=== PATIENT | male | born 1965 | race Caucasian/White ===

== ENCOUNTER 2019-10-23 13:36 | Observation (INO) ==
--- NOTE | 2019-10-23 14:57 | Emergency Department Note ---
Impression & Plan Chest pain, Fluttering sensation of heart ED Provider Note CHIEF COMPLAINT: Chest pain, palpitations HISTORY OF PRESENTING ILLNESS: This is a 54-year-old male who presents to the emergency department by private vehicle with complaint of chest pain and heart palpitations. Patient states that he woke up around 3 AM with midsternal chest pain that radiated into his right arm, he noticed some tingling in his fingers and felt short of breath and nauseated. He also felt that he was having some fluttering in his chest that he describes as "feeling like my heart is going to stop." He notes that the chest pain felt like a pressure on his chest and lasted about 30 minutes and seem to resolve on its own. He did not take anything for the pain. He denies any chest pain now and rates his pain a 0/10. He states he still is feeling some fluttering off and on, but denies any other symptoms. He states "something just feels wrong." He has not had any lightheadedness, syncope, or sweats. He has not had any vomiting. He denies abdominal pain or back pain. He is a smoker and notes a family history of a grandmother who had a pacemaker. He notes that he has been having feelings of heart fluttering and chest pains off and on for the past 1.5 months, but it has been getting progressively worse over the past week. He notes that he waited to get evaluated because he was concerned about coronavirus. REVIEW OF SYSTEMS: A complete 10 point review of systems was reviewed with the patient with pertinent positives and negatives as per history of present illness. All else were negative. PAST MEDICAL HISTORY: Insomnia SOCIAL HISTORY: Lives at home, he is a current everyday smoker ALLERGIES: No known allergies PHYSICAL EXAM: CONSTITUTIONAL: Pleasant and cooperative. Nontoxic-appearing and in no acute distress. Well appearing and well nourished. HEENT: Normocephalic, atraumatic. Pharynx normal. NECK: Supple, full active range of motion without discomfort. RESPIRATORY: Clear to auscultation bilaterally with no wheezing, crackles, rhonchi or stridor. Equal expansion bilaterally. CARDIOVASCULAR: Regular rate and rhythm with no murmurs, rubs or gallops. Normal peripheral perfusion, 2+ distal pulses in all 4 extremities. No pitting edema. GASTROINTESTINAL: Soft, nontender, nondistended. No palpable masses or HSM. Bowel sounds present in all quadrants. No CVA tenderness bilaterally. MUSCULOSKELETAL: Full range of motion of all joints without discomfort. INTEGUMENTARY: No rash or other significant dermatologic conditions noted. NEUROLOGIC: Alert and oriented X 4 with normal affect. Normal strength and sensation in all 4 extremities. Normal speech. Normal gait observed. ED COURSE AND MEDICAL DECISION MAKING: CC: Patient presenting with complaint of chest pain, palpitations DIFFERENTIAL DIAGNOSIS: Includes, but not limited to acute coronary syndrome, cardiac dysrhythmia, pericarditis, myocarditis, anxiety, GERD, gastritis, pulmonary embolism, among others. INTERPRETATION OF LABS: Mild leukocytosis, no anemia, normal platelets, no significant electrolyte abnormalities, normal renal function, normal liver enzymes and lipase. Coagulation factors within normal limits. Troponin undetectable. IMAGING: SINGLE VIEW CHEST CLINICAL HISTORY: Atypical chest pain. FINDINGS: 2 AP, portable, upright chest radiographs are compared to study dated 05/19/2014. The cardiomediastinal silhouette is unremarkable. There is mild bibasilar atelectasis. The lungs and pleural spaces are otherwise clear. No pneumothorax is seen. The bony thorax is grossly intact. IMPRESSION: No active disease in the chest. EKG: Shows normal sinus rhythm with a rate of 69 bpm, normal intervals, no ST or T wave abnormalities, no ectopy, no significant change when compared to previous EKG from 10/01/2018 by my interpretation. MEDICATION RECONCILIATION: I attest that I have personally reviewed the patient's current medication list. INITIAL VITAL SIGNS REVIEW: I reviewed the patient's initial vital signs and interpret them as follows: T: Afebrile; BP: Mildly hypertensive; HR: Within normal limits; RR: Within normal limits; Pulse Ox: Within normal limits on room air. Blood pressure screening: The patient was found to have an elevated blood pressure and was referred to the inpatient team for further evaluation and management. MDM SUMMARY: Patient was evaluated at bedside, history and physical exam performed. Patient is alert and oriented, in no acute distress, resting calmly in the stretcher. He currently denies any chest pain and rates his pain level a 0/10. Cardiac monitoring: An order was placed for continuous cardiac monitoring. The monitor shows a rate of 62 bpm with normal sinus rhythm. No ectopy noted on initial assessment. EKG was reviewed at bedside, noting normal sinus rhythm with no acute ischemic changes. Orders were placed at bedside for labs, EKG and chest x-ray to evaluate for cardiopulmonary disease. Patient discussed with Dr. Caldwell, who agrees with my assessment, plan, and disposition. Labs and imaging reviewed as above, labs are notable for mild leukocytosis, electrolytes, renal function and liver function are all normal. Troponin is undetectable. Heart score is 3, however patient's story is concerning and I feel he would benefit from admission for chest pain work-up and stress test. Patient reassessed multiple times throughout ED stay, he has remained hemodynamically stable and chest pain-free. He was agreeable to stay in the hospital for chest pain observation. I spoke on the phone with Nelly Romero PA-C with the [facility] team, she agreed to evaluate the patient for the admission. The patient was updated on all results and plan for this admission, he verbalized understanding and was agreeable with this plan. The patient was stable at time of admission. The chart was completed utilizing [employer] Speech voice recognition software. Grammatical errors, random word insertions, pronoun errors, and incomplete sentences are an occasional consequence of this system due to software limita tions, ambient noise, and hardware issues. Any formal questions or concerns about the content, text, or information contained within the body of this dictation should be directly addressed to the nurse practitioner for clarification. 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 Beliefs That Will Affect Care: None marital status: Current Living Situation: Spouse Other Information That Helps Us Care for You: No Feels Safe at Home: Yes Safety Concerns: Feels Safe At This Time Smoking Status: Current some day smoker Years Smoked: 30 ; Cigarettes Per Day: 1-2 ; Hx Alcohol Use: Yes Alcohol type: beer Alcohol Intake Frequency Comment: former hx of alcohol use Hx Substance Use: No Allergies Allergies Allergy/AdvReac Type Severity Reaction Status Date / Time No Known Allergies Allergy Unverified 10/23/19 15:59 Home Meds Home Medications Medication Instructions Recorded Confirmed sertraline 25 mg PO DAILY 10/23/19 10/23/19 Results & Data (ED) Vital Signs Vital Signs - 24 hr 10/23/19 13:58 10/23/19 15:08 10/23/19 15:09 Temperature 37.0 C Temperature Source Oral Pulse Rate 69 61 Pulse Rate [Apical] 58 L Pulse Rhythm Regular Pulse Strength Normal Respiratory Rate 16 16 18 Respiratory Effort / Characteristics Non-Labored Spontaneous Non-Labored Respiratory Depth Normal Normal Respiratory Pattern Regular Blood Pressure 135/80 115/70 Blood Pressure [Right Arm] 115/70 Blood Pressure Mean 98 74 Blood Pressure Mean [Right Arm] 85 Blood Pressure Position Lying Pulse Oximetry 99 97 99 Oxygen Delivery Method Room Air Room Air Sepsis Recent Fever Within 48 Hours No Sepsis Action Taken by Nursing No Action Required 10/23/19 15:30 10/23/19 16:00 Temperature Temperature Source Pulse Rate 66 63 Pulse Rate [Apical] Pulse Rhythm Pulse Strength Respiratory Rate 16 17 Respiratory Effort / Characteristics Respiratory Depth Respiratory Pattern Blood Pressure 115/76 142/76 H Blood Pressure [Right Arm] Blood Pressure Mean 91 105 Blood Pressure Mean [Right Arm] Blood Pressure Position Pulse Oximetry 98 98 Oxygen Delivery Method Sepsis Recent Fever Within 48 Hours Sepsis Action Taken by Nursing Laboratory Data Result diagrams: 10/23/19 15:05 10/23/19 15:05 Lab Results 10/23/19 10/23/19 10/23/19 Range/Units 15:05 15:05 15:05 WBC 11.26 H (4.8-10.8) K/uL RBC 4.75 (4.7-6.1) M/uL Hgb 14.9 (14.0-18.0) g/dL Hct 44.1 (42-52) % MCV 92.8 (80-100) fL MCH 31.4 (25-34) pg MCHC 33.8 (32-36) g/dL RDW Std Deviation 45.4 (36.4-46.3) fL RDW Coeff of Venu 13.3 (11.5-14.5) % Plt Count 274 (130-400) K/uL MPV 8.6 (7.4-10.4) fL Immature Gran % (Auto) 0.4 % Neut % (Auto) 55.1 % Lymph % (Auto) 31.3 % [place] % (Auto) 10.7 % Eos % (Auto) 2.1 % Baso % (Auto) 0.4 % Immature Gran # (Auto) 0.04 H (0.00-0.02) K/uL Neut # (Auto) 6.22 (1.4-6.5) K/uL Lymph # (Auto) 3.52 H (1.2-3.4) K/uL [place] # (Auto) 1.20 H (0.11-0.59) K/uL Eos # (Auto) 0.24 (0-0.5) K/uL Baso # (Auto) 0.04 (0-0.2) K/uL PT 10.9 (9.0-12.0) Seconds INR 1.0 (0.9-1.1) APTT 28.9 (21.0-31.0) Seconds PTT Ratio 1.0 Sodium 140 (136-145) mmol/L Potassium 4.1 (3.5-5.1) mmol/L Chloride 107 (98-107) mmol/L Carbon Dioxide 29 (21-32) mmol/L Anion Gap 4.0 (3-11) BUN 8 (7-18) mg/dl Creatinine 0.90 (0.6-1.4) mg/dl Est Cr Clr Drug Dosing 92.9 ml/min Est GFR ( Amer) 111.0 Est GFR (Non-Af Amer) 95.8 BUN/Creatinine Ratio 9.0 L (10-20) Glucose 83 (70-99) mg/dl Calcium 8.5 (8.5-10.1) mg/dl Total Bilirubin 0.3 (0.2-1) mg/dl AST 10 L (15-37) U/L ALT 17 (12-78) U/L Alkaline Phosphatase 85 (45-117) U/L Troponin I < 0.015 (0-0.045) ng/ml Total Protein 7.7 (6.4-8.2) gm/dl Albumin 3.8 (3.4-5.0) gm/dl Globulin 3.9 (2.5-4.0) gm/dl Albumin/Globulin Ratio 1.0 (0.9-2) Lipase 112 (73-393) U/L TSH (0.300-4.500) uIu/ml 10/23/19 Range/Units 15:05 WBC (4.8-10.8) K/uL RBC (4.7-6.1) M/uL Hgb (14.0-18.0) g/dL Hct (42-52) % MCV (80-100) fL MCH (25-34) pg MCHC (32-36) g/dL RDW Std Deviation (36.4-46.3) fL RDW Coeff of Venu (11.5-14.5) % Plt Count (130-400) K/uL MPV (7.4-10.4) fL Immature Gran % (Auto) % Neut % (Auto) % Lymph % (Auto) % [place] % (Auto) % Eos % (Auto) % Baso % (Auto) % Immature Gran # (Auto) (0.00-0.02) K/uL Neut # (Auto) (1.4-6.5) K/uL Lymph # (Auto) (1.2-3.4) K/uL [place] # (Auto) (0.11-0.59) K/uL Eos # (Auto) (0-0.5) K/uL Baso # (Auto) (0-0.2) K/uL PT (9.0-12.0) Seconds INR (0.9-1.1) APTT (21.0-31.0) Seconds PTT Ratio Sodium (136-145) mmol/L Potassium (3.5-5.1) mmol/L Chloride (98-107) mmol/L Carbon Dioxide (21-32) mmol/L Anion Gap (3-11) BUN (7-18) mg/dl Creatinine (0.6-1.4) mg/dl Est Cr Clr Drug Dosing ml/min Est GFR ( Amer) Est GFR (Non-Af Amer) BUN/Creatinine Ratio (10-20) Glucose (70-99) mg/dl Calcium (8.5-10.1) mg/dl Total Bilirubin (0.2-1) mg/dl AST (15-37) U/L ALT (12-78) U/L Alkaline Phosphatase (45-117) U/L Troponin I (0-0.045) ng/ml Total Protein (6.4-8.2) gm/dl Albumin (3.4-5.0) gm/dl Globulin (2.5-4.0) gm/dl Albumin/Globulin Ratio (0.9-2) Lipase (73-393) U/L TSH 2.890 (0.300-4.500) uIu/ml Discharge Plan Visit Data *Final* Discharge Date/Time: 10/23/19 17:05 Chief Complaint: Cardiac Assessment Stated Complaint: CHEST PAINS,NUMBNESS,HEADACHE,NAUSEA ED Provider: Rigo Caldwell ED Midlevel Provider: Trena Simon Discharge Problem: Chest pain, Fluttering sensation of heart Patient Disposition: Admitted As Inpatient Discharge Instructions Interventions: ED Discharge Assessment Last Done: 10/23/19 17:05 Discharge Problem: Chest pain Qualifiers: Chest pain type: unspecified Qualified Code(s): R07.9 - Chest pain, unspecified
[2019-10-23 15:14] LABS: Basophils # (auto) 0.04 K/uL (0-0.2); Basophils % (auto) 0.4 %; Eosinophils # (auto) 0.24 K/uL (0-0.5); Eosinophils % (auto) 2.1 %; Hematocrit (blood only) 44.1 % (42-52); Hemoglobin 14.9 g/dL (14.0-18.0); Immature Granulocytes # (auto) 0.04 K/uL (0.00-0.02); Immature Granulocytes % (auto) 0.4 %; Lymphocytes # (auto) 3.52 K/uL (1.2-3.4); Lymphocytes % (auto) 31.3 %; Mean Corpuscular Hemoglobin 31.4 pg (25-34); Mean Corpuscular Hgb Conc 33.8 g/dL (32-36); Mean Corpuscular Volume 92.8 fL (80-100); Mean Platelet Volume 8.6 fL (7.4-10.4); Monocytes % (auto) 10.7 %; Neutrophils # (auto) 6.22 K/uL (1.4-6.5); Neutrophils % (auto) 55.1 %; Platelet Count 274 K/uL (130-400); RDW Coefficient of Variation 13.3 % (11.5-14.5); RDW Standard Deviation 45.4 fL (36.4-46.3); Red Blood Count 4.75 M/uL (4.7-6.1); White Blood Count 11.26 K/uL (4.8-10.8)
--- NOTE | 2019-10-23 15:22 | XRay Report ---
SINGLE VIEW CHEST CLINICAL HISTORY: Atypical chest pain. FINDINGS: 2 AP, portable, upright chest radiographs are compared to study dated 05/19/2014. The cardio mediastinal silhouette is unremarkable. There is mild bibasilar atelectasis. The lungs and pleural sp aces are otherwise clear. No pneumothorax is seen. The bony thorax is grossly intact. IMPRESSION: No active disease in the chest. ACT 112: Negative or not required by law. Electronically signed by: Rigo Mcdonnell M.D. 10/23/2019 3:20 PM
[2019-10-23 15:25] LABS: Partial Thromboplastin Time 28.9 Seconds (21.0-31.0); Prothrombin Time 10.9 Seconds (9.0-12.0)
[2019-10-23 15:31] LABS: Alanine Aminotransferase 17 U/L (12-78); Albumin Level 3.8 gm/dl (3.4-5.0); Aspartate Aminotransferase 10 U/L (15-37); Blood Urea Nitrogen 8 mg/dl (7-18); Calcium 8.5 mg/dl (8.5-10.1); Carbon Dioxide 29 mmol/L (21-32); Chloride 107 mmol/L (98-107); Creatinine Clr Calc Pharmacy 92.9 ml/min; Est GFR (Non-African American) 95.8; Glucose 83 mg/dl (70-99); Lipase 112 U/L (73-393); Potassium 4.1 mmol/L (3.5-5.1); Sodium 140 mmol/L (136-145)
--- NOTE | 2019-10-23 15:33 | Electrocardiogram Report ---
Test Reason : Blood Pressure : / mmHG Vent. Rate : 069 BPM Atrial Rate : 069 BPM P-R Int : 142 ms QRS Dur : 072 ms QT Int : 366 ms P-R-T Axes : 022 079 060 degrees QTc Int : 392 ms Poor data quality, interpretation may be adversely affected Normal sinus rhythm Normal ECG When compared with ECG of 01-OCT-2018 16:05, No significant change was found Confirmed by Rudy Ferreira ([id number]) on 10/23/2019 3:32:58 PM Referred By: ED Confirmed By:Juan M Ferreira
[2019-10-23 15:36] LABS: Alkaline Phosphatase 85 U/L (45-117); Bilirubin,Total 0.3 mg/dl (0.2-1); Globulin 3.9 gm/dl (2.5-4.0); Total Protein 7.7 gm/dl (6.4-8.2); Troponin I < 0.015 ng/ml (0-0.045)
--- NOTE | 2019-10-23 16:55 | History & Physical Report ---
Date of Service October 23, 2019 Assessment & Plan (1) Chest pain: (2) Fluttering sensation of heart: This is a 54 year old M who has a significant PMH of tobacco use, DONITA who presents to ED 2/2 to chest pain x 1.5 months. In ED patient remained hemodynamically stable. Lab work notable for mild leukocytosis of 11.2 6K with a predominance of lymphocytes and monocytes, CMP relatively unremarkable, troponin WNL, lipase and TSH WNL. Chest x-ray with no acute cardiopulmonary abnormality. EKG with normal sinus rhythm with no ST or T wave changes. He did not receive any treatment in ED secondary to being asymptomatic. Spoke to ED provider regarding above. In ED pt does not exhibit s/sx of ACS. Troponin WNL and EKG w/o ischemic changes. Pt remains asymptomatic in ED. Recommend observation to rule out ACS, monitor on tele for arrhythmia or ectopic beats, other possible etiologies including GERD ,esophageal spasm, DONITA and others. admit to tele cycle troponin q6h x2 repeat ekg fasting lipid panel, a1c in a.m. obtain echocardiogram cardiology consult (3) DONITA (generalized anxiety disorder): continue zoloft (4) DVT prophylaxis: scd/teds disposition: admit to tele Follow up: PCP Dr. Maki upon discharge Pt was seen and examined in collaboration with Dr. Mi, please see addendum History of Present Illness Chief Complaint: Chest pain x 1.5 months Primary Care Provider: Chandana Maki, This is a 54 year old M who has a significant PMH of tobacco use, DONITA who presents to ED 2/2 to chest pain x 1.5 months. Sx started approx a month and a half ago when he noticed fluttering in his chest. Sx would last 30 minutes to 1 hour. Sx would occur with exertion and at rest. He woke up this morning around 3 AM with substernal chest pain, described as a "pressure on chest," resolved within 1 to 2 hours on own. He states over the past 1.5 months he has not sought care due to concerns of the coronavirus. Initially when symptoms began he was described as fluttering and has progressed to fluttering and pressure on chest. Symptoms were not made worse with meals, deep breathing or positional change. Resolved on own. Did not try anything [id number] for his symptoms. Symptoms do not radiate. He has no prior history of GERD so unsure what this feels like. Currently he is asymptomatic. He denies any recent illness, fever, chills, sweats, lightheadedness, dizziness, syncope, cough, hemoptysis, nausea, vomiting, abdominal pain, change in bowel or urinary habits. He denies any prior history of cardiac disease, hypertension, hyperlipidemia or stroke. Positive family history a maternal grandmother of [place] in her 50s. He is a tobacco user and smokes 1 to 2 cigarettes daily and has smoked for at least 30 years of his life. He otherwise has no other medical problems except for anxiety controlled with sertraline. In ED patient remained hemodynamically stable. Lab work notable for mild leukocytosis of 11.2 6K with a predominance of lymphocytes and monocytes, CMP relatively unremarkable, troponin WNL, lipase and TSH WNL. Chest x-ray with no acute cardiopulmonary abnormality. EKG with normal sinus rhythm with no ST or T wave changes. He did not receive any treatment in ED secondary to being asymptomatic. Allergies Allergy/AdvReac Type Severity Reaction Status Date / Time No Known Allergies Allergy Unverified 10/23/19 15:59 Home Medications Home Medications Medication Instructions Recorded Confirmed Type sertraline 25 mg PO DAILY 10/23/19 10/23/19 History Past Med/Surg History Medical History (Updated 10/23/19 @ 18:05 by JUNG Mike) DONITA (generalized anxiety disorder) Surgical History (Updated 10/23/19 @ 16:49 by Nelly Pepe PA-C) Abscess, perirectal requiring 9 surgical procedures History of parotid gland removal Family History Grandmother (Maternal) Myocardial infarction, Onset Age: 52 Pacemaker Social History (Updated 10/23/19 @ 16:51 by Nelly Pepe PA-C) Preferred Language: Kazakh Communication Ability: Effective Director Dance Required: No Beliefs That Will Affect Care: None marital status: Current Living Situation: Spouse Other Information That Helps Us Care for You: No Feels Safe at Home: Yes Safety Concerns: Feels Safe At This Time Smoking Status: Current some day smoker Years Smoked: 30 ; Cigarettes Per Day: 1-2 ; Hx Alcohol Use: Yes Alcohol type: beer Alcohol Intake Frequency Comment: former hx of alcohol use Hx Substance Use: No Review of Systems Review of Systems: All systems reviewed & are unremarkable except as noted in HPI & below Physical Exam Physical Exam: please refer to Dr. Mi for details of physical exam findings. Results & Data Results & Data ([facility]) Vital Signs (Past 12 Hours) Vital Signs Temp Pulse Pulse Resp BP BP Pulse Ox 10/23/19 16:30 66 14 106/77 99 10/23/19 16:00 63 17 142/76 H 98 10/23/19 15:30 66 16 115/76 98 10/23/19 15:09 58 L 18 115/70 99 10/23/19 15:08 61 16 115/70 97 10/23/19 13:58 37.0 C 69 16 135/80 99 Laboratory Results Short CBC 10/23/19 Range/Units 15:05 WBC 11.26 H (4.8-10.8) K/uL Hgb 14.9 (14.0-18.0) g/dL Hct 44.1 (42-52) % Plt Count 274 (130-400) K/uL BMP 10/23/19 15:05 Sodium 140 Potassium 4.1 Chloride 107 Carbon Dioxide 29 BUN 8 Creatinine 0.90 Glucose 83 Calcium 8.5 Cardiac Enzymes 10/23/19 Range/Units 15:05 Troponin I < 0.015 (0-0.045) ng/ml Liver Function 10/23/19 Range/Units 15:05 Total Bilirubin 0.3 (0.2-1) mg/dl AST 10 L (15-37) U/L ALT 17 (12-78) U/L Alkaline Phosphatase 85 (45-117) U/L Albumin 3.8 (3.4-5.0) gm/dl Diagnostic Findings CXR: IMPRESSION: No active disease in the chest. ECG Rate (beats per minute): 69 Rhythm: normal sinus Code Status & VTE Plan Code Status Full Code VTE Prophylaxis Plan VTE Prophylaxis will be ordered: Yes Supervising Physician Co-Signing Physician Notes History and physical exam performed by me. History significant for 54 year old M who has a significant PMH of tobacco use, DONITA who presents to ED for chest pain x 1.5 months, usually exertional but woke patient up this AM, occasionally associated with fluttering sensation. Described as occasionally sharp and occasionally pressure. Detailed history documented above. Physical exam General: Well nourished, well hydrated , average body habitus, no acute distress and not ill appearing Eyes: PERRL, conjunctivae normal, not pale, anicteric sclerae, EOM intact bilaterally ENMT: External ear and nose normal, oropharynx normal Neck: Normal visual inspection, no tracheal deviation, no swelling noted Respiratory: Normal respiratory effort, no respiratory distress, lungs clear to auscultation, no crackles and no wheezes Cardiovascular: Pulse is RRR. 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 May need stress testing inpatient or outpatient Get A1c and lipid panel Provided smoking cessation counselling Other plans as documented in Nelly Pepe's note
[2019-10-23] MEDS ORDERED: ACETAMINOPHEN 325 MG TAB PO PRN (17:23)
[2019-10-23] MEDS ORDERED: NITROGLYCERIN SL 0.4 MG/TAB TAB SL PRN (17:23)
[2019-10-23] MEDS ORDERED: ONDANSETRON INJ 2 MG/ML 2 ML VIAL IV PRN (17:23)
[2019-10-23] MEDS ORDERED: ALUMINUM/MAGNESIUM SUSP 30 ML UDC PO PRN (17:23)
[2019-10-24 01:44] LABS: Hematocrit (blood only) 42.9 % (42-52); Hemoglobin 14.4 g/dL (14.0-18.0); Mean Corpuscular Hgb Conc 33.6 g/dL (32-36); Mean Corpuscular Volume 92.5 fL (80-100); Mean Platelet Volume 8.6 fL (7.4-10.4); Platelet Count 262 K/uL (130-400); RDW Coefficient of Variation 13.2 % (11.5-14.5); RDW Standard Deviation 44.4 fL (36.4-46.3); Red Blood Count 4.64 M/uL (4.7-6.1); White Blood Count 12.76 K/uL (4.8-10.8)
[2019-10-24 02:49] LABS: BUN Creatinine Ratio 12.2 (10-20); Calcium 8.3 mg/dl (8.5-10.1); Creatinine Clr Calc Pharmacy 98.3 ml/min; Est GFR (African American) 113.7; Est GFR (Non-African American) 98.1; Potassium 3.9 mmol/L (3.5-5.1)
[2019-10-24 06:28] LABS: Estimated Average Glucose 120 mg/dl; Hemoglobin A1C 5.8 % (4.5-5.6)
[2019-10-24] MEDS ORDERED: SERTRALINE HCL 50 MG TABLET PO SCH (09:00)
[2019-10-24] MEDS ORDERED: ASPIRIN 81 MG CHEW PO SCH (09:00)
--- NOTE | 2019-10-24 12:16 | Electrocardiogram Report ---
Test Reason : Blood Pressure : / mmHG Vent. Rate : 063 BPM Atrial Rate : 063 BPM P-R Int : 156 ms QRS Dur : 068 ms QT Int : 374 ms P-R-T Axes : 032 066 052 degrees QTc Int : 382 ms Normal sinus rhythm with sinus arrhythmia Normal ECG When compared with ECG of 23-OCT-2019 13:56, No significant change was found Confirmed by Rudy Ferreira ([id number]) on 10/24/2019 12:16:02 PM Referred By: REFERRED SELF Confirmed By:Juan M Ferreira
--- NOTE | 2019-10-24 12:48 | Cardiology Consultation ---
Date of Consultation October 24, 2019 Assessment & Plan (1) Chest pain: Exercise stress echocardiogram was negative for ischemia. Believe this is most likely musculoskeletal in nature. Resting echocardiogram shows an essentially structurally normal heart. No medications will be started at this time nor is any further testing necessary. Okay to DC to home from a cardiac standpoint without restrictions. (2) Symptomatic PVCs: The pathophysiology, treatment options and benign nature of PVCs were discussed with him at great length today. He was advised on initiation of beta-blockade for symptom relief but he does not believe this is necessary at this time. So I would like to discharge him to home and have him set up for a 1 week ZIO patch monitor through my office. I will then see him in follow-up in 1 month to review the results. (3) Cervical radiculopathy: I will refer him to the [facility] as an outpatient. History of Present Illness Reason for Consultation: Chest pain and palpitations Requesting Physician: Dr. Ruiz Attending Physician: Jen Ruiz MD History of Present Illness It was my pleasure to see Mr. Bal in consultation today October 24, 2019. He is a very pleasant 54-year-old gentleman who does not routinely follow with cardiology. He presented to [facility] emergency department on 10/23/2019 with complaints of chest discomfort and palpitations. He states he has been noticing a fluttering sensation in his chest for approximately the last month and a half but is put off seeking medical care due to concerns over the COVID-19 pandemic. He describes as a fluttering sensation in his chest that usually happens at rest particularly when getting into bed at night. He states he does not notice it as much when he is exerting himself. He noticed a significant worsening of the symptoms with a small amount of alcohol but no change in symptoms with caffeine. He occasionally gets lightheaded or dizzy with this but has not syncopized. He woke up at approximately 3 AM the day of presentation with a sharp chest pain. He described it as sharp and pressure-like across his left precordium which was associated with bilateral hand numbness. This concerned him and he came in the emergency department. His initial work-up in the emergency room was unremarkable for ischemia and he was admitted to telemetry. He is not had any further chest discomfort since admission but continues to have palpitations that does correlate with PVCs on telemetry. Allergies Allergy/AdvReac Type Severity Reaction Status Date / Time No Known Allergies Allergy Unverified 10/23/19 15:59 Home Medications Home Medications Medication Instructions Recorded Confirmed Type sertraline 25 mg PO DAILY 10/23/19 10/23/19 History Patient History Medical History DONITA (generalized anxiety disorder) Surgical History Abscess, perirectal requiring 9 surgical procedures History of parotid gland removal Family History Grandmother (Maternal) Myocardial infarction, Onset Age: 52 Pacemaker Social History Preferred Language: Peruvian Communication Ability: Effective Form Worker Required: No Beliefs That Will Affect Care: None marital status: Current Living Situation: Spouse Other Information That Helps Us Care for You: No Feels Safe at Home: Yes Safety Concerns: Feels Safe At This Time Smoking Status: Current some day smoker Years Smoked: 30 ; Cigarettes Per Day: 1-2 ; Hx Alcohol Use: Yes Alcohol type: beer Alcohol Intake Frequency Comment: former hx of alcohol use Hx Substance Use: No Review of Systems Review of Systems: All systems reviewed & are unremarkable except as noted in HPI & below Physical Exam Physical Exam: Physical Exam: General: Awake, alert and oriented x 3. No acute distress. HEENT: Normocephalic, atraumatic. Pupils equal, round and reactive to light and accommodation. Extraocular muscles are intact. Anicteric sclera. Moist mucous membranes. Neck: No JVD. No bruit. Cardiovascular: Regular. No S-4. Normal S-1 and S-2. No S-3. No murmurs, rubs or gallops. Pulmonary: Clear to auscultation bilaterally. No rales, rhonchi, or wheezing. Abdomen: Bowel sounds x 4, soft. No rebound, guarding or tenderness. No organomegaly. Extremities: No clubbing, cyanosis or edema. +2 pedal pulses bilaterally. Skin: Warm and dry. Results & Data ([facility]) Vital Signs (Past 12 Hours) Vital Signs Temp Pulse Pulse Resp BP Pulse Ox 10/24/19 11:53 36.8 C 73 18 106/74 95 10/24/19 08:01 36.7 C 59 L 16 109/73 96 10/24/19 07:12 66 10/24/19 03:43 36.5 C 75 15 115/69 96 10/24/19 01:10 63 (1) Chest pain Chest pain type: unspecified Qualified Code(s): R07.9 - Chest pain, unspecified
--- NOTE | 2019-10-24 13:33 | Hospitalist Progress Note ---
Date of Service October 24, 2019 Assessment & Plan (1) Chest pain: Serial cardiac enzymes and EKG and negative for any ACS Stress echo has been negative for any ischemia Denies any more pain but noted to have frequent PVCs during the test Will be discharged home this afternoon ZIO patch as an outpatient (2) Fluttering sensation of heart: This is a 54 year old M who has a significant PMH of tobacco use, DONITA who presents to ED 2/2 to chest pain x 1.5 months. Denies any more fluttering and no chest pain Monitor is showing frequent PVCs and noted more during a stress test No medications for now Will Zio patch as an outpatient and cardiology evaluation as an outpatient (3) DONITA (generalized anxiety disorder): continue zoloft (4) DVT prophylaxis: scd/teds disposition: admit to tele Follow up: PCP Dr. Maki upon discharge Discharge home this afternoon Admission and Anticipated Discharge Date Admission Date: October 23, 2019 Subjective The patient was seen and examined in medical telemetry unit He denies any symptoms as of this morning He is a status post negative stress echo He will be discharged home this afternoon Review of Systems Review of Systems: All systems reviewed and are unremarkable except as noted below Cardiovascular: no chest pain and no dyspnea Physical Exam Physical Exam: Lying in bed without any apparent distress Constitutional: well developed and well nourished; no acute distress and not ill appearing Eyes: PERRL, conjunctivae normal, anicteric sclerae ENMT: external ear and nose normal, oropharynx normal Neck: trachea midline, no thyromegaly Respiratory: normal respiratory effort; no respiratory distress Auscultation: lungs clear to auscultation bilaterally Cardiovascular: Rate/Rhythm: regular rate and regular rhythm Heart Sounds: no murmur Gastrointestinal (Abdomen): Inspection/Auscultation: abdomen normal to inspection and normal bowel sounds; abdomen not distended Percussion/Palpation: abdomen soft; abdomen nontender Musculoskeletal: No acute arthritis involving any joints Neurologic: moves all extremities; no focal motor deficits Alert, awake and oriented x3 Lymphatic: no cervical or axillary lymphadenopathy Results & Data Results & Data ([facility]) Vital Signs (Past 12 Hours) Vital Signs Temp Pulse Pulse Resp BP Pulse Ox 10/24/19 11:53 36.8 C 73 18 106/74 95 10/24/19 08:01 36.7 C 59 L 16 109/73 96 10/24/19 07:12 66 10/24/19 03:43 36.5 C 75 15 115/69 96 Laboratory Results Short CBC 10/23/19 10/24/19 Range/Units 15:05 01:27 WBC 11.26 H 12.76 H (4.8-10.8) K/uL Hgb 14.9 14.4 (14.0-18.0) g/dL Hct 44.1 42.9 (42-52) % Plt Count 274 262 (130-400) K/uL BMP 10/23/19 10/24/19 15:05 01:27 Sodium 140 139 Potassium 4.1 3.9 Chloride 107 107 Carbon Dioxide 29 30 BUN 8 10 Creatinine 0.90 0.85 Glucose 83 98 Calcium 8.5 8.3 L Cardiac Enzymes 10/23/19 10/23/19 10/24/19 Range/Units 15:05 20:07 01:27 Troponin I < 0.015 < 0.015 < 0.015 (0-0.045) ng/ml Liver Function 10/23/19 Range/Units 15:05 Total Bilirubin 0.3 (0.2-1) mg/dl AST 10 L (15-37) U/L ALT 17 (12-78) U/L Alkaline Phosphatase 85 (45-117) U/L Albumin 3.8 (3.4-5.0) gm/dl Medications Administered Current Inpatient Medications Acetaminophen (Tylenol) 650 mg PO Q4H PRN PRN Reason: Pain or Fever Stop: 11/22/19 17:22 Al Hydrox/Mg Hydrox/Simethicone (Maalox) 15 ml PO Q4H PRN PRN Reason: Dyspepsia Stop: 11/22/19 17:22 Aspirin (Aspirin Chew) 81 mg PO DAILY MICHAEL Stop: 11/23/19 08:59 Nitroglycerin (Nitrostat) 0.4 mg SL UD PRN PRN Reason: Chest Pain Stop: 11/22/19 17:22 Ondansetron HCl (Zofran) 4 mg IV Q6H PRN PRN Reason: Nausea Stop: 11/22/19 17:22 Sertraline HCl (Zoloft) 25 mg PO DAILY MICHAEL Stop: 11/23/19 08:59 (1) Chest pain Chest pain type: unspecified Qualified Code(s): R07.9 - Chest pain, unspecified
--- NOTE | 2019-10-24 17:11 | Discharge Summary ---
Date of Service October 24, 2019 Admission HPI Per Admitting Provider This is a 54 year old M who has a significant PMH of tobacco use, DONITA who presents to ED 2/2 to chest pain x 1.5 months. Sx started approx a month and a half ago when he noticed fluttering in his chest. Sx would last 30 minutes to 1 hour. Sx would occur with exertion and at rest. He woke up this morning around 3 AM with substernal chest pain, described as a "pressure on chest," resolved within 1 to 2 hours on own. He states over the past 1.5 months he has not sought care due to concerns of the coronavirus. Initially when symptoms began he was described as fluttering and has progressed to fluttering and pressure on chest. Symptoms were not made worse with meals, deep breathing or positional change. Resolved on own. Did not try anything [id number] for his symptoms. Symptoms do not radiate. He has no prior history of GERD so unsure what this feels like. Currently he is asymptomatic. He denies any recent illness, fever, chills, sweats, lightheadedness, dizziness, syncope, cough, hemoptysis, nausea, vomiting, abdominal pain, change in bowel or urinary habits. He denies any prior history of cardiac disease, hypertension, hyperlipidemia or stroke. Positive family history a maternal grandmother of [place] in her 50s. He is a tobacco user and smokes 1 to 2 cigarettes daily and has smoked for at least 30 years of his life. He otherwise has no other medical problems except for anxiety controlled with sertraline. In ED patient remained hemodynamically stable. Lab work notable for mild leukocytosis of 11.2 6K with a predominance of lymphocytes and monocytes, CMP relatively unremarkable, troponin WNL, lipase and TSH WNL. Chest x-ray with no acute cardiopulmonary abnormality. EKG with normal sinus rhythm with no ST or T wave changes. He did not receive any treatment in ED secondary to being asymptomatic. Admission Exam Per Admitting Provider General: Well nourished, well hydrated , average body habitus, no acute distress and not ill appearing Eyes: PERRL, conjunctivae normal, not pale, anicteric sclerae, EOM intact bilaterally ENMT: External ear and nose normal, oropharynx normal Neck: Normal visual inspection, no tracheal deviation, no swelling noted Respiratory: Normal respiratory effort, no respiratory distress, lungs clear to auscultation, no crackles and no wheezes Cardiovascular: Pulse is RRR. S1-2: Chest (Breasts): Chest: normal inspection of chest, no chest wall tenderness Gastrointestinal (Abdomen): Abdomen is not distended, soft, non-tender to palpation, no guarding, no palpable hepatosplenomegaly, normal bowel sounds Musculoskeletal: No cyanosis or clubbing, all extremities motor strength 5/5 Neurologic: Alert and oriented x 3, No focal weakness, sensation grossly intact Psychiatric: Euthymic affect Principal Diagnosis Chest pain, no ACS and negative stress echo, frequent PVCs Discharge Exam Constitutional well developed and well nourished; no acute distress and not ill appearing Eyes PERRL, conjunctivae normal, anicteric sclerae ENMT external ear and nose normal, oropharynx normal Neck trachea midline, no thyromegaly Respiratory normal respiratory effort; no respiratory distress Auscultation: lungs clear to auscultation bilaterally Cardiovascular Rate/Rhythm: regular rate and regular rhythm Heart Sounds: no murmur Gastrointestinal (Abdomen) Inspection/Auscultation: abdomen normal to inspection and normal bowel sounds; abdomen not distended Percussion/Palpation: abdomen soft; abdomen nontender Neurologic moves all extremities; no focal motor deficits Lymphatic no cervical or axillary lymphadenopathy Discharge Data Allergies Allergy/AdvReac Type Severity Reaction Status Date / Time No Known Allergies Allergy Unverified 10/23/19 15:59 Consultations 10/23/19 15:52 ED Decision to Admit Stat 10/23/19 17:23 Consult Cardiology Routine Hospital Course (1) Chest pain: Serial cardiac enzymes and EKG and negative for any ACS Stress echo has been negative for any ischemia Denies any more pain but noted to have frequent PVCs during the test Will be discharged home this afternoon ZIO patch as an outpatient (2) Fluttering sensation of heart: This is a 54 year old M who has a significant PMH of tobacco use, DONITA who presents to ED 2/2 to chest pain x 1.5 months. Denies any more fluttering and no chest pain Monitor is showing frequent PVCs and noted more during a stress test No medications for now Will Zio patch as an outpatient and cardiology evaluation as an outpatient (3) DONITA (generalized anxiety disorder): continue zoloft (4) DVT prophylaxis: scd/teds disposition: admit to tele Follow up: PCP Dr. Maki upon discharge Discharge home this afternoon Total Time Total Time Spent Total Time Spent (In Minutes): 35 minutes Total Time Includes: Examination of the Patient, Discharge Planning, Medication Reconciliation and Communication With Other Providers Discharge Plan Discharge Items Patient Disposition: Home - Self-Care Reason For Visit: CHEST PAIN Discharge Diagnosis: Chest pain, no ACS and negative stress echo, frequent PVCs Condition on Discharge: Good Activity: Resume your previous activity Non-emergency contact: Primary Care Provider Call non-emergency contact if: you have any medication questions and your symptoms worsen Follow-up/Referrals: Chandana Maki DO [Primary Care Provider] - 10/31/19 11:20 am (10/31/2019 11:20 AM Provider Chandana Maki DO Department General Internal Medicine [facility] cardiology will call you with an appointment and further instructions ) Diet: Heart Healthy Addtl Attending Provider Instructions: Please keep your follow-up appointments Pending Studies at Discharge: No Stand-Alone Forms: My [facility] dateIITians, Smoking Cessation Medications and DC Order Prescriptions: Continued sertraline 50 mg tablet 25 mg PO DAILY RF: 0 Discharge Orders: Discharge Order (Routine); Ordered 10/24/19 Ordered By: Jen Ruiz Admission Data Admit Date/Time: 10/23/19 16:06 Attending Provider: Jen Ruiz Admit Provider: Elizabeth Mi I. Primary Care Provider: Chandana Maki Other Providers: Elizabeth Mi I. ; Chava Ndiaye Other Interventions: Discharge Summary Assessment (RN) Last Done: 10/24/19 14:31 DC Date/Time DO NOT enter until pt leaves facility: 10/24/19 14:32
== END 2019-10-24 14:32 | disposition home or self-care (01) ==
LOC: 2N 13:36 → ED 13:36 → SUATTDRO 16:06 → 2N 17:05